=== PATIENT | female | born 1995 | race Caucasian/White ===

== ENCOUNTER → 2016-10-12 | Outpatient (CLI) | payer OTHER ==
--- NOTE | 2016-10-12 15:56 | CT ---
EXAM DESCRIPTION: CT ABDOMEN AND PELVIS WITHOUT AND WITH CONTRAST CLINICAL HISTORY: LUQ ABDOMINAL PAIN COMPARISON: None Available. TECHNIQUE: CT of the abdomen and pelvis are performed prior to and during IV bolus administration of 100 mL of IV contrast. FINDINGS: The lung bases are clear of infiltrate. Liver is normal in size and parenchymal appearance. Spleen, pancreas, and kidneys are unremarkable. There is no lymphadenopathy, inflammation, or free fluid observed. 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 All of these are chronic findings. IMPRESSION: 1. Normal study Electronically signed by: Sachin Chen MD 10/12/2016 15:54
== END | disposition home or self-care (01) ==
LOC: CT 14:59
PROVIDERS: ATTEND Family Medicine
DX: R19.7 Diarrhea, unspecified (principal); R10.12 Left upper quadrant pain; R11.2 Nausea with vomiting, unspecified